=== PATIENT | female | born 1950 | race American Indian/Alaskan Native ===

== ENCOUNTER 2017-12-14 08:54 | Outpatient (CLI) | payer OTHER ==
--- NOTE | 2017-12-14 13:27 | Mammography Report ---
BILATERAL MAMMOGRAM: FINDINGS: There are scattered fibroglandular densities (approximately 25%-50% glandular). No significant mass, distortion, suspicious calcification, or skin change is seen. Significant no interval change is identified when compared to exams dating back to July 2013. CAD was utilized. IMPRESSION: Negative mammogram. There is no mammographic evidence of malignancy. RECOMMENDATION: Follow-up per ACS guidelines. BI-RADS CATEGORY: 1 = Negative ACR BI-RADS MAMMOGRAPHIC CODES: 0 = Needs additional imaging evaluation; 1 = Negative; 2 = Benign; 3 = Probably benign; 4 = Suspicious; 5 = Malignant; 6 = Known biopsy-proven malignancy COMMENT: 1. Dense breast tissue, i.e., adenosis, fibrocystic changes, etc., may obscure an underlying neoplasm. 2. Approximately 10% of cancers are not detected with mammography. 3. A negative mammography report should not delay biopsy if a clinically suspicious mass is present. COMMENT: Patient follow-up letters are generated in [employer].
== END 2017-12-14 08:55 | disposition home or self-care (01) ==
LOC: SPVWC 08:54
DX: Z12.31 Encounter for screening mammogram for malignant neoplasm of breast (principal); I10 Essential (primary) hypertension; Z90.710 Acquired absence of both cervix and uterus
CPT/HCPCS: 77067

== ENCOUNTER 2018-12-20 08:05 | Outpatient (CLI) | payer OTHER ==
--- NOTE | 2018-12-23 09:02 | Mammography Report ---
DIGITAL SCREENING MAMMOGRAM WITH CAD, 12/20/2018 INDICATION: Routine screening mammography. TECHNIQUE: Digital bilateral 2D mammography was obtained in the craniocaudal and mediolateral obliq ue projections. This examination was interpreted with the benefit of Computer-Aided Detection analysi s. COMPARISON: 12/14/2017 and 08/12/2013 FINDINGS: Breast Density: There are scattered areas of fibroglandular density. There is no evidence of dominant mass, suspicious calcifications or architectural distortion in eithe r breast. IMPRESSION: No mammographic evidence of malignancy. Follow up recommendation: Routine yearly BI-RADS Category 1: Negative. A "normal" or negative report should not discourage follow up or biopsy of a clinically significant f inding. A written summary of these findings will be mailed to the patient. The patient will be entered into a mammography reporting system which will generate a reminder letter for the patient's next appointmen t at the appropriate interval. The [employer] recommends yearly mammograms starting at age 40 and continuing as l rico as a woman is in good health. Breast MRI is recommended for women with an approximate 20-25% or greater lifetime risk of breast cancer, including women with a strong family history of breast or ova clara cancer or who have been treated for Hodgkin's disease. Signer Name: Ze Lyman MD Signed: 12/23/2018 8:58 AM Workstation Name: [id number]
== END 2018-12-20 08:06 | disposition home or self-care (01) ==
LOC: SPVWC 08:05
PROVIDERS: ATTEND Urology
DX: Z12.31 Encounter for screening mammogram for malignant neoplasm of breast (principal); I10 Essential (primary) hypertension; Z90.710 Acquired absence of both cervix and uterus
CPT/HCPCS: 77067